=== PATIENT | male | born 1960 | race Caucasian/White ===

== ENCOUNTER 2018-03-14 20:37 | Emergency (ER) | payer OTHER ==
[~2018-03-14 20:37] MED LIST: AMBIEN10 MG PO; ASPIR-TRIN325 M1 PO; ASPIRIN EC325 MG PO; Ambien PO; CELEBREX200 MG PO; HYDROCODON-ACE1 EAC7 PO; LEXAPRO10 MG PO; SENNA-TIME S T1 EACH PO; SENOKOT S,PE1 TABLET PO; Vicodin,Lortab 5/500 PO
[2018-03-14 20:53] LABS: BASOPHIL (%) 0.4 % (0-1); BASOPHIL COUNT 0.1 K/uL (0-0.1); EOSINOPHIL (%) 0.4 % (0-5); EOSINOPHIL COUNT 0.1 K/uL (0-0.3); HEMATOCRIT 40.2 % (38.0-50.0); HEMOGLOBIN 14.4 G/DL (12.5-16.6); IMMATURE GRANULOCYTE (%) 1.1 % (0.0-0.7); LYMPHOCYTE COUNT 3.6 K/uL (1.0-2.8); MCHC 35.8 G/DL (30.0-36.0); MCV 89.3 FL (86-99); MONOCYTE (%) 2.9 % (3-12); MONOCYTE COUNT 0.5 K/uL (0-0.8); NEUTROPHIL (%) 74.2 % (45-76); NEUTROPHIL COUNT 12.7 K/uL (1.8-6.4); PLATELET COUNT 276 K/uL (156-360); RBC DIS.WIDTH-SD 39.2 % (39-53); WHITE BLOOD COUNT 17.1 K/uL (4.1-10.2)
[2018-03-14 21:19] LABS: AMYLASE 20 IU/L (1-118); CHLORIDE 107 mEq/L (99-109); POTASSIUM 3.5 mEq/L (3.7-5.4); SODIUM 141 mEq/L (136-147)
[2018-03-14 21:21] LABS: GLUCOSE 151 mg/dL (70-99)
[2018-03-14 21:24] LABS: CREATININE 1.5 mg/dL (0.6-1.3); GFR ESTIMATE (CALCULATED) 51 mL/min/ (58.99-99999); SERUM ETHYL ALCOHOL < 10 mg/dL
[2018-03-14 21:25] LABS: UREA NITROGEN (BUN) 27 mg/dL (9-23)
[2018-03-14 21:27] LABS: LIPASE 24 U/L (1.0-51.0)
[2018-03-14 22:53] VITALS: BP 117/70
[2018-03-14 22:57] VITALS: BP 106/69
[2018-03-14 23:17] VITALS: BP 107/70
== END 2018-03-15 00:41 | disposition short-term general hospital (02) ==
LOC: EME
PROVIDERS: Emergency Medicine
PROC: 30233R1 Transfusion of Nonautologous Platelets into Peripheral Vein, Percutaneous Approach (ICD-10-PCS; principal; 2018-03-14)
DX: S32.82XA Multiple fractures of pelvis without disruption of pelvic ring, initial encounter for closed fracture (principal); S32.502A Unspecified fracture of left pubis, initial encounter for closed fracture; S32.10XA Unspecified fracture of sacrum, initial encounter for closed fracture; S32.401A Unspecified fracture of right acetabulum, initial encounter for closed fracture; S32.601A Unspecified fracture of right ischium, initial encounter for closed fracture; S32.591A Other specified fracture of right pubis, initial encounter for closed fracture; S32.592A Other specified fracture of left pubis, initial encounter for closed fracture; S32.412A Displaced fracture of anterior wall of left acetabulum, initial encounter for closed fracture; T80.818A Extravasation of other vesicant agent, initial encounter; S80.212A Abrasion, left knee, initial encounter; S20.311A Abrasion of right front wall of thorax, initial encounter; S70.211A Abrasion, right hip, initial encounter; S90.02XA Contusion of left ankle, initial encounter; V84.4XXA Person injured while boarding or alighting from special agricultural vehicle, initial encounter; M16.12 Unilateral primary osteoarthritis, left hip; M47.892 Other spondylosis, cervical region; M50.30 Other cervical disc degeneration, unspecified cervical region; M51.34 Other intervertebral disc degeneration, thoracic region
CPT/HCPCS: 70450; 71260; 72125; 72129; 72132; 73552; 74177; 80048; 81003; 82150; 83690; 85025; 86850; 86900; 86901; 99281; 99285; G0480; J1170; J2060; J3010; P9037